=== PATIENT | female | born 1950 | race Caucasian/White ===

== ENCOUNTER 2024-01-19 07:30 | Day surgery (SDC) | payer BC ==
[~2024-01-19] VITALS: Ht 167.6 cm; Wt 65.5 kg
[2024-01-19] MEDS ORDERED: CEFAZOLIN SOD 2 GM in D5W 50 ML IV ONE (07:45)
[2024-01-19] MEDS ORDERED: BUPIVACAINE /PF 0.25% 10 ML VIAL INJ ONE (09:40)
[2024-01-19] MEDS ORDERED: ACETAMINOPHEN I.V. 1000 MG 100 ML IV ONE (09:47)
[2024-01-19] MEDS ORDERED: ONDANSETRON HCL 4 MG/2 ML VIAL IVP PRN (10:30)
[2024-01-19] MEDS ORDERED: LR 1,000 ML IV SCH (10:30)
[2024-01-19] MEDS ORDERED: HYDROmorphone 2 MG/ML VIAL IVP PRN (10:30)
[2024-01-19] MEDS ORDERED: HYDROcodone/ACETAMIN 5-325 MG TAB (NORCO/ VICODIN) PO PRN (11:15)
[2024-01-19] MEDS ORDERED: NALOXONE HCL 0.4 MG/ML AMP (NARCAN) IVP PRN ×2 (11:15)
[2024-01-19] MEDS ORDERED: ACETAMINOPHEN 325 MG TABLET PO PRN (11:15)
[2024-01-19] MEDS ORDERED: HYDROmorphone 1 MG/ML INJ. CARTRIDGE ONE (11:38)
[2024-01-19] MEDS: HYDROmorphone 1 MG/ML INJ. CARTRIDGE IVP PRN (11:38)
[2024-01-19 12:52] VITALS: BP_SYST 139; PULSE 79; RESP 16; TEMP 98.1
[2024-01-19] MEDS: CEFAZOLIN 1 GM IVPB PREMIX 50 ML IV SCH (14:29)
[2024-01-19] MEDS: ONDANSETRON HCL 4 MG/2 ML VIAL IVP PRN (14:50)
[2024-01-19] MEDS ORDERED: INSU100V9 SQ (14:51)
[2024-01-19] MEDS ORDERED: BIOT25008 PO (14:51)
[2024-01-19] MEDS ORDERED: LEVO75TA7 PO (14:51)
[2024-01-19] MEDS ORDERED: MES60 PO (14:51)
[2024-01-19] MEDS ORDERED: DULA3PEN INJ (14:51)
[2024-01-19] MEDS ORDERED: GLIP10TA21 PO (14:51)
[2024-01-19] MEDS ORDERED: METF-379 PO (14:51)
[2024-01-19 14:58] VITALS: BP_SYST 152; PULSE 76; O2SAT 100
[2024-01-19 15:00] VITALS: O2SAT 98
[2024-01-19 16:02] VITALS: O2SAT 97
[2024-01-19] MEDS: HYDROcodone/ACETAMIN 5-325 MG TAB (NORCO/ VICODIN) PO PRN (18:14)
[2024-01-19 20:00] VITALS: BP_SYST 135; PULSE 79; RESP 18; TEMP 98.2; O2SAT 95
[2024-01-19] MEDS: D5/0.45 NS 1,000 ML IV SCH (22:20)
[2024-01-19] MEDS: INSULIN GLARGINE 100 UNITS/ML, 10 ML VIAL SUBCUT SCH (22:26)
[2024-01-20 01:15] VITALS: BP_SYST 137; PULSE 84; RESP 20; TEMP 97.3; O2SAT 95
[2024-01-20] MEDS: LEVOTHYROXINE SODIUM 0.075 MG TABLET PO SCH (06:19)
[2024-01-20] MEDS: glipiZIDE XL 5 MG TAB ( GLUCOTROL XL) PO SCH (08:21)
[2024-01-20] MEDS: pyRIDostigmine bromide 60 MG TABLET PO SCH (08:21)
[2024-01-20 09:13] VITALS: BP_SYST 128; PULSE 77; RESP 17; TEMP 97.6; O2SAT 99
== END 2024-01-20 14:27 | disposition home or self-care (01) ==
LOC: SDS 07:30 → SMU 07:30 → EDSTATUS 09:00 → SMU 11:13 → UNDODISOB 01-20 10:35 → SDS 01-20 14:27
PROVIDERS: ATTEND Colon & Rectal Surgery
DX: K80.10 Calculus of gallbladder with chronic cholecystitis without obstruction (principal); E11.22 Type 2 diabetes mellitus with diabetic chronic kidney disease; N18.2 Chronic kidney disease, stage 2 (mild); E03.9 Hypothyroidism, unspecified; K21.9 Gastro-esophageal reflux disease without esophagitis; E78.5 Hyperlipidemia, unspecified; Z86.69 Personal history of other diseases of the nervous system and sense organs; Z98.891 History of uterine scar from previous surgery; Z98.890 Other specified postprocedural states; Z79.4 Long term (current) use of insulin; Z79.84 Long term (current) use of oral hypoglycemic drugs; Z79.890 Hormone replacement therapy; Z79.899 Other long term (current) drug therapy; Z82.49 Family history of ischemic heart disease and other diseases of the circulatory system; Z82.61 Family history of arthritis; Z80.8 Family history of malignant neoplasm of other organs or systems
CPT/HCPCS: 87081; 47563; 94010; 74300; 94070; 82948 ×2; 88304; J3490; J0690 ×2; J1815; J2765; J3465; J2405; J2704; J3010; J1170; J7060; J7120; J7030; C1758; C1727; J0131; S2900; G0378